=== PATIENT | male | born 1990 | race Caucasian/White ===

== ENCOUNTER 2016-03-07 12:08 | Emergency (ER) | payer OTHER ==
[2016-03-07 12:35] VITALS: TEMP 99.1; BMI 29.1
--- NOTE | 2016-03-07 12:38 | DIRPT ---
CLINICAL DATA: Cough, congestion, shortness of breath EXAM: CHEST 2 VIEW COMPARISON: 01/18/2016 FINDINGS: The heart size and mediastinal contours are within normal limits. Both lungs are clear. The visualized skeletal structures are unremarkable. IMPRESSION: No active cardiopulmonary disease. Electronically Signed By: Marcia Woods On: 03/07/2016 12:35
--- NOTE | 2016-03-07 12:50 | EDPRACDOC ---
- General Information Chief Complaint: Flu-Like Symptoms Stated Complaint: COUGH/CONGESTION/HEADACHE Time Seen by Provider: 03/07/16 12:44 Home Medications: Home Medications Azithromycin 250 mg PO DAILY #1 tablet 01/18/16 Benzonatate [Tessalon Perle] 100 mg PO TID #20 capsule 01/18/16 Azithromycin [Zithromax] 0 mg PO DAILY #6 tablet 03/07/16 Prednisone [Deltasone, Orasone] 40 mg PO DAILY 5 Days 03/07/16 Promethazine Dextromethorphan [Phenergan DM] 5 ml PO Q6 PRN #120 ml 03/07/16 Allergies/Adverse Reactions: Allergies Allergy/AdvReac Type Severity Reaction Status Date / Time No Known Allergies Allergy Verified 11/17/15 20:43 - History of Present Illness Onset: 1 WEEK HPI: PT COMPLAINS OF COUGH PROD OF GREEN PHLEGM, SINUS CONGESTION, SORE THROAT, WHEEZING, STATES SYMPTOMS X 1 MTH, WORSE OVER LAST WEEK, SEEMS TO BE WORSE AT NIGHT. NO FEVER OR CHILLS. Current Symptoms: Reports: Cough, Headache, Nasal Symptoms, Sore Throat, Myalgia Shortness of Breath: Mild Cough: Reports: Productive, Green Rhinorrhea: Reports: Green Ear Symptoms: Reports: None Fever Severity/Quality: Reports: no fever Oral Intake: Normal Urinary Output: Normal Relevant History of: None Associated Signs & Symptoms:: Reports: Cough, Headache, Nasal Symptoms, Sore Throat, Myalgia. Denies: Earache, Fever, Vomiting, Diarrhea ED Past Medical History - History Reviewed Yes Nurses notes reviewed and agree except as marked No Past Medical History: Yes Patient has no past medical history - Patient Medical History Psychological History: Denies: Depression - Social Medical History Smoking Status: Light tobacco smoker (less than 5/day) ETOH: None Substance Abuse: None EDM Review of Systems - Review of Systems Constitutional: negative: Chills, Fever Eyes: negative: Blurred Vision, Double Vision Ears: negative: Drainage Throat: Pain Nose: Congestion, Discharge Respiratory: Cough, Shortness of Breath, Wheezing Cardiovascular: negative: Chest Pain, Palpitations Gastrointestinal: negative: Diarrhea, Nausea, Pain, Vomiting Genitourinary: negative: Dysuria, Frequency Neurological: Headache. negative: Dizziness, Numbness, Weakness Musculoskeletal: No Symptoms Reported - Physical Exam Constitutional: Alert (Awake), No apparent distress Oriented to: Time, Person, Place Last recorded Vital Signs: Last Vital Signs Temp 99.1 F 03/07/16 12:34 Pulse 102 03/07/16 12:34 Resp 16 03/07/16 12:34 BP 131/78 03/07/16 12:34 Pulse Ox 93 03/07/16 12:34 Oxygen Pulse Oxygen Saturation 93 O2 Device Room Air Oxygen Flow Rate Fraction of Inspired Oxygen ( FIO2) - HEENT Head: Normal ( normocephalic) Eye Exam: Normal (PERRL, EOMI, Sclera white) Oropharynx: Red Tympanic Membrane: Dull ENT EAC: Normal TMJ: Normal Nose: No Symptoms Reported (septum midline) Neck: Normal (FROM, trachea at midline) - Respiratory/Cardiovascular Respiratory: Normal - CTA (BBS clear to auscultation without adventitious sounds ) Cardiovascular: Normal (RRR without murmur, gallop or rub) - Integumentary Skin: Normal, Warm, Dry Lymphatics: Normal (no adenopathy) - Neurologic Memory Impaired: Normal Motor Function: Normal (Normal tone, Pulses 2+ No cyanosis or edema, FROM) Cranial Nerve: Normal (CN II-X11 intact sensation, strength 5/5) Cerebellar: Normal Mood Description: Normal Perception: Normal - Differential Diagnosis Bronchitis, Pneumonia, Sinusitis, URI - Diagnostic Imaging CXR Image interpreted by: Radiologist CHEST 2 VIEW COMPARISON: 01/18/2016 FINDINGS: The heart size and mediastinal contours are within normal limits. Both lungs are clear. The visualized skeletal structures are unremarkable. IMPRESSION: No active cardiopulmonary disease. Decision Time to Discharge: 12:50 - Departure Disposition: Home Condition: Stable Final Diagnosis: Acute bronchitis, Tobacco abuse Instructions: Acute Bronchitis (ED) Education/Counseling Given To: Patient Education/Counseling Given Regarding: Diagnosis, Treatment, Prognosis, Follow Up Referrals: Lynsey Blackwood MD [Staff Physician] - One Week Prescriptions: Azithromycin [Zithromax] 0 mg PO DAILY #6 tablet Prednisone [Deltasone, Orasone] 40 mg PO DAILY 5 Days Promethazine Dextromethorphan [Phenergan DM] 5 ml PO Q6 PRN #120 ml PRN Reason: Cough Additional Instructions: Rest, drink plenty of fluids, use Tylenol every 4 hours and Motrin every 6 hours as needed for pain or fever, return to the ED for any worsening symptoms or concerns.
[2016-03-07] MEDS ORDERED: ALBUTEROL 6.7 GM MDI INH ONE (12:51)
[2016-03-07 13:05] VITALS: BP 138/80; PULSE 106
== END 2016-03-07 13:04 | disposition home or self-care (01) ==
LOC: EDMC 12:08
DX: J20.9 Acute bronchitis, unspecified (principal); F17.210 Nicotine dependence, cigarettes, uncomplicated
CPT/HCPCS: 71020; 94640; 99283; J3490

== ENCOUNTER 2016-03-08 13:52 | Emergency (ER) | payer OTHER ==
[2016-03-08 14:08] VITALS: TEMP 99; BMI 29.0
[2016-03-08 14:17] LABS: AUTOMATED BASOPHIL 0.4 % (0-2); AUTOMATED EOSINOPHIL 5.5 % (0-5); AUTOMATED LYMPH 17.5 % (17-44); AUTOMATED MONOCYTE 8.1 % (3-10); AUTOMATED NEUTROPHIL 68.5 % (45-76); MPV 9.9 fL (7.4-10.4)
[2016-03-08 14:27] LABS: BLOOD UREA NITROGEN 13 MG/DL (9-20); CALCIUM 9.4 MG/DL (8.4-10.2); CALCULATED OSMOLALITY 264 MOs/Kg (270-290); CHLORIDE 102 mEq/L (98-107); GLUCOSE 104 MG/DL (70-99); SODIUM LEVEL 137 mEq/L (137-146); TOTAL PROTEIN 7.9 G/DL (6.3-8.2)
--- NOTE | 2016-03-08 17:05 | EDPRACDOC ---
- General Information Chief Complaint: Dyspnea/Resp distress Stated Complaint: COUGHING UP BLOOD TURNING BLUE SEEN IN ED YESTERDA Time Seen by Provider: 03/08/16 17:00 Information Source: Patient Home Medications: Home Medications Prednisone [Deltasone, Orasone] 40 mg PO DAILY 5 Days 03/07/16 Promethazine Dextromethorphan [Phenergan DM] 5 ml PO Q6 PRN #120 ml 03/07/16 Albuterol Sulfate [Proair Hfa] 2 puff INH Q4-6H PRN 03/08/16 Benzonatate [Tessalon Perle] 100 mg PO TID #20 capsule 03/08/16 Allergies/Adverse Reactions: Allergies Allergy/AdvReac Type Severity Reaction Status Date / Time cat dander Allergy Wheezing Verified 03/08/16 14:05 - History of Present Illness HPI: SOB, WHEEZING. SEEN IN ED YESTERDAY. RESTARTED ON PREDNISONE AND ALBUTEROL MDI. INHALER. NOT HELPING. SOME BLOOD TINGED PRODUCTIVE SPUTUM. HAS TRIED LIVING WITHOUT CATS WITHOUT RELIEF. Shortness of Breath: Moderate ED Past Medical History - History Reviewed Yes Nurses notes reviewed and agree except as marked - Patient Medical History Respiratory History: Reports: Asthma Psychological History: Denies: Depression Systemic History: Denies: Cancer - Social Medical History Smoking Status: Heavy tobacco smoker (5 or more cigarettes/day or daily pipe/ cigar) EDM Review of Systems - Review of Systems ROS Negative Except as Marked: Yes All systems reviewed and were negative except as marked Constitutional: Fever (OFF AND ON) Eyes: No Symptoms Reported Respiratory: Shortness of Breath, Wheezing Cardiovascular: No Symptoms Reported Gastrointestinal: No Symptoms Reported Genitourinary: No Symptoms Reported Neurological: No Symptoms Reported Musculoskeletal: No Symptoms Reported Integumentary: No Symptoms Reported - Physical Exam Constitutional: Alert (Awake), No apparent distress Oriented to: Time, Person, Place Last recorded Vital Signs: Last Vital Signs Temp 99.0 F 03/08/16 14:05 Pulse 107 03/08/16 16:54 Resp 20 03/08/16 16:54 BP 133/74 03/08/16 16:54 Pulse Ox 94 03/08/16 16:54 Oxygen Pulse Oxygen Saturation 94 O2 Device Room Air Oxygen Flow Rate Fraction of Inspired Oxygen ( FIO2) - HEENT Head: Normal ( normocephalic) Eye Exam: Normal (PERRL, EOMI, Sclera white) Oropharynx: Normal (Pharynx:Moist without exudate,Gums-no swelling) Nose: No Symptoms Reported (septum midline) Neck: Normal (FROM, trachea at midline) - Respiratory/Cardiovascular Respiratory: Wheezes Cardiovascular: Normal (RRR without murmur, gallop or rub) - GI Auscultation: Normal (NABS) Palpation: Normal (Soft,No rebound or guarding, non distended) Tenderness: Non tender Blackman's Sign: Negative - Musculoskeletal Back: Normal (Non-Tender) Extremities: Normal (Normal tone, Pulses 2+ No cyanosis or edema, FROM) - Integumentary Skin: Normal, Warm, Dry Lymphatics: Normal (no adenopathy) - Neurologic Memory Impaired: Normal Motor Function: Normal (Normal tone, Pulses 2+ No cyanosis or edema, FROM) Cranial Nerve: Normal (CN II-X11 intact sensation, strength 5/5) Cerebellar: Normal Mood Description: Normal Perception: Normal ED SOB MDM - Results Result Diagrams: 03/08/16 14:07 03/08/16 14:07 Results: WBC 11.6 xk/uL (3.8-10.8) H 03/08/16 14:07 RBC 5.42 xM/uL (4.70-6.10) 03/08/16 14:07 Hgb 16.8 g/dL (14.0-18.0) 03/08/16 14:07 Hct 48.9 % (42-52) 03/08/16 14:07 MCV 90 fL (80-94) 03/08/16 14:07 MCH 31.0 pg (27-32) 03/08/16 14:07 MCHC 34.3 g/dl (33-36) 03/08/16 14:07 RDW 12.7 % (11.5-14.5) 03/08/16 14:07 Plt Count 184 xk/uL (130-400) 03/08/16 14:07 MPV 9.9 fL (7.4-10.4) 03/08/16 14:07 Neut % (Auto) 68.5 % (45-76) 03/08/16 14:07 Lymph % (Auto) 17.5 % (17-44) 03/08/16 14:07 [place] % (Auto) 8.1 % (3-10) 03/08/16 14:07 Eos % (Auto) 5.5 % (0-5) H 03/08/16 14:07 Baso % (Auto) 0.4 % (0-2) 03/08/16 14:07 Absolute Neuts (auto) 7.89 xk/uL (1.7-8.2) 03/08/16 14:07 Absolute Lymphs (auto) 1.97 xk/uL (0.65-4.75) 03/08/16 14:07 Sodium 137 mEq/L (137-146) 03/08/16 14:07 Potassium 4.0 mEq/L (3.5-5.1) 03/08/16 14:07 Chloride 102 mEq/L (98-107) 03/08/16 14:07 Carbon Dioxide 23 mMOL/L (22-33) 03/08/16 14:07 Anion Gap 16 mEq/L (8-16) 03/08/16 14:07 BUN 13 MG/DL (9-20) 03/08/16 14:07 Creatinine 0.80 MG/DL (0.66-1.25) 03/08/16 14:07 Estimated GFR (MDRD) > 60 mL/min (>=60) 03/08/16 14:07 Glucose 104 MG/DL (70-99) H 03/08/16 14:07 Calculated Osmolality 264 MOs/Kg (270-290) L 03/08/16 14:07 Calcium 9.4 MG/DL (8.4-10.2) 03/08/16 14:07 Total Bilirubin 0.9 MG/DL (0.2-1.3) 03/08/16 14:07 AST 36 IU/L (17-59) 03/08/16 14:07 ALT 52 IU/L (21-72) 03/08/16 14:07 Alkaline Phosphatase 87 IU/L (38-126) 03/08/16 14:07 Total Protein 7.9 G/DL (6.3-8.2) 03/08/16 14:07 Albumin 4.5 G/DL (3.5-5.0) 03/08/16 14:07 Lab Results 03/08/16 03/08/16 14:07 14:07 WBC 11.6 H RBC 5.42 Hgb 16.8 Hct 48.9 MCV 90 MCH 31.0 MCHC 34.3 RDW 12.7 Plt Count 184 MPV 9.9 Neut % (Auto) 68.5 Lymph % (Auto) 17.5 [place] % (Auto) 8.1 Eos % (Auto) 5.5 H Baso % (Auto) 0.4 Absolute Neuts (auto) 7.89 Absolute Lymphs (auto) 1.97 Sodium 137 Potassium 4.0 Chloride 102 Carbon Dioxide 23 Anion Gap 16 BUN 13 Creatinine 0.80 Estimated GFR (MDRD) > 60 Glucose 104 H Calculated Osmolality 264 L Calcium 9.4 Total Bilirubin 0.9 AST 36 ALT 52 Alkaline Phosphatase 87 Total Protein 7.9 Albumin 4.5 Decision Time to Discharge: 18:00 - Departure Yes I personally saw and evaluated the patient. Disposition: Home Condition: Stable Final Diagnosis: Bronchitis, acute, with bronchospasm Instructions: Acute Bronchitis (ED) Education/Counseling Given To: Patient Education/Counseling Given Regarding: Diagnosis Referrals: None,No Provider [Primary Care Provider] - One Week Prescriptions: Benzonatate [Tessalon Perle] 100 mg PO TID #20 capsule
[2016-03-08] MEDS ORDERED: Albuterol/Ipratropium Neb 3 ML NEB NEB ONE (17:08)
[2016-03-08] MEDS ORDERED: TUSSIONEX 5 ML ORAL SYRINGE PO ONE (17:47)
[2016-03-08 17:56] VITALS: BP 148/77; PULSE 102
[2016-03-09] MEDS ORDERED: EPINEPHrine 1 MG/10 ML (1:10,000) SYR ONE (20:12)
== END 2016-03-08 18:30 | disposition home or self-care (01) ==
LOC: ED 13:52
DX: J20.9 Acute bronchitis, unspecified (principal); F17.200 Nicotine dependence, unspecified, uncomplicated
CPT/HCPCS: 36415; 80053; 85025; 94640; 99284; J3490; J7620; J0171

== ENCOUNTER 2016-03-27 14:40 | Emergency (ER) | payer OTHER ==
[2016-03-27 15:20] VITALS: BP 154/78; PULSE 96; TEMP 99.2
[2016-03-27 15:21] VITALS: BMI 29.1
--- NOTE | 2016-03-27 15:25 | DIRPT ---
CLINICAL DATA: Back strain EXAM: LUMBAR SPINE - COMPLETE 4+ VIEW COMPARISON: None. FINDINGS: There is no evidence of lumbar spine fracture. Upper sacrum appears intact. Alignment is normal. Intervertebral disc spaces are maintained. Paravertebral soft tissues are unremarkable. IMPRESSION: Negative. Electronically Signed By: Osiel Mallory M.D. On: 03/27/2016 15:23
--- NOTE | 2016-03-27 15:27 | DIRPT ---
CLINICAL DATA: Back strain, lifting injury EXAM: THORACIC SPINE 2 VIEWS COMPARISON: None. FINDINGS: There is no evidence of thoracic spine fracture. Minimal scoliotic deformity of the thoracic spine may be positional in nature. No other significant bone abnormalities are identified. Paravertebral soft tissues are unremarkable. IMPRESSION: Negative. Electronically Signed By: Osiel Mallory M.D. On: 03/27/2016 15:24
--- NOTE | 2016-03-27 15:33 | EDPRACDOC ---
- General Information Chief Complaint: Back Pain Stated Complaint: UPPER/LOWER BACK PAIN Time Seen by Provider: 03/27/16 15:19 Information Source: Patient Mode Of Arrival: Car Home Medications: Home Medications Diazepam [Valium] 5 mg PO TID #15 tablet 03/27/16 Oxycodone Immediate Release [Oxycodone Immediate Release (OxyIR)] 5 mg PO Q6H PRN #20 tab 03/27/16 Prednisone [Deltasone, Orasone] 20 mg PO BID #12 tab 03/27/16 Allergies/Adverse Reactions: Allergies Allergy/AdvReac Type Severity Reaction Status Date / Time cat dander Allergy Wheezing Verified 03/27/16 15:33 - History of Present Illness Onset: YESTERDAY HPI: PT PRESENTS WITH CERVICAL AND LUMBAR BACK PAIN THAT BEGAN WHEN HE WAS HELPING HIS PARENTS MOVE. STATES HE WAS MOVING A LARGE PIECE OF FURNITURE AND TRIPPED OVER A WATER HOSE AND LOST HIS FOOTING. AT THAT TIME HE TWISTED HIS BACK. DENIES ANY RADIATION OF THE PAIN DOWN HIS ARMS OR LEGS, DENIES ANY LOSE OF BOWEL OR BLADDER. Pain Location: Reports: Upper, Lower, Thoracic, Lumbar Pain Radiates To: Reports: None Pain Caused By: Reports: Lifting Circumstances: Reports: Other Relevant History: Denies: Abdominal aneurysm, Arthiritis, Cancer, Chronic back pain, Gallbladder disease, Pancreatitis, Pyelonephritis, Urolithiasis, UTI, None , IA, O Pain Severity: Reports: Moderate Pain Quality: Reports: Sharp, Stabbing Worsened By: Reports: Breathing, Movement, Twisting, Walking Associated Signs and Symptoms: Reports: None ED Past Medical History - History Reviewed Yes Nurses notes reviewed and agree except as marked - Patient Medical History Respiratory History: Reports: Asthma Psychological History: Denies: Depression Systemic History: Denies: Cancer - Social Medical History Smoking Status: Heavy tobacco smoker (5 or more cigarettes/day or daily pipe/ cigar) EDM Review of Systems - Review of Systems ROS Negative Except as Marked: Yes All systems reviewed and were negative except as marked - Physical Exam Constitutional: Alert Oriented to: Time, Person, Place Last recorded Vital Signs: Last Vital Signs Temp 99.2 F 03/27/16 15:19 Pulse 96 03/27/16 15:19 Resp 20 03/27/16 15:19 BP 154/78 03/27/16 15:19 Pulse Ox 95 03/27/16 15:19 Oxygen Pulse Oxygen Saturation 95 O2 Device Oxygen Flow Rate Fraction of Inspired Oxygen ( FIO2) - HEENT Head: Normal ( normocephalic) Eye Exam: Normal (PERRL, EOMI, Sclera white) Oropharynx: Normal (Pharynx:Moist without exudate,Gums-no swelling) Nose: No Symptoms Reported (septum midline) Neck: Normal (FROM, trachea at midline) - Respiratory/Cardiovascular Respiratory: Normal - CTA (BBS clear to auscultation without adventitious sounds ) Cardiovascular: Normal (RRR without murmur, gallop or rub) - GI Auscultation: Normal (NABS) Palpation: Normal (Soft,No rebound or guarding, non distended) Tenderness: Non tender Blackman's Sign: Negative Rectal Exam: Deferred - Musculoskeletal Back: CVA Tenderness, No Palpable Step-off Extremities: Normal (Normal tone, Pulses 2+ No cyanosis or edema, FROM) - Integumentary Skin: Normal, Warm, Dry Lymphatics: Normal (no adenopathy) - Neurologic Memory Impaired: Normal Motor Function: Normal (Normal tone, Pulses 2+ No cyanosis or edema, FROM) Cranial Nerve: Normal (CN II-X11 intact sensation, strength 5/5) Cerebellar: Normal Mood Description: Normal Perception: Normal ED Back Exam - Neurologic Motor Deficit: None Reflexes: Normal - Musculoskeletal Cervical: Tender, CVA Tenderness Thoracic: Normal Lumbar: Tender, CVA Tenderness Midline: Normal Paraspinous: Normal Straight Leg Raise: Negative Pelvis: Normal - Differential Diagnosis Musculoskeletal pain Decision Time to Discharge: 15:35 - Departure Disposition: Home Condition: Stable Final Diagnosis: Lumbar sprain Cervical sprain Qualifiers: Encounter type: initial encounter Qualified Code(s): S13.9XXA - Sprain of joints and ligaments of unspecified parts of neck, initial encounter Instructions: Thoracic (Lumbar) Strain, Cervical Strain (ED) Education/Counseling Given To: Patient Education/Counseling Given Regarding: Diagnosis, Treatment, Prognosis, Follow Up Referrals: None,No Provider [Primary Care Provider] - One Week Aric Head MD [Staff Physician] - One Week Prescriptions: New Diazepam [Valium] 5 mg PO TID #15 tablet Oxycodone Immediate Release [Oxycodone Immediate Release (OxyIR)] 5 mg PO Q6H PRN #20 tab PRN Reason: Pain Prednisone [Deltasone, Orasone] 20 mg PO BID #12 tab Forms: Excuse Note Additional Instructions: ICE OR HEAT TO THE AFFECTED AREA. FOLLOW UP WITH PCP NEXT WEEK. RETURN TO THE ED FOR WORSENING SYMPTOMS OR CONCERNS.
[2016-03-27] MEDS ORDERED: OXYCODONE HCL 5 MG TABLET PO ONE (15:34)
[2016-03-27] MEDS ORDERED: DIAZEPAM 5 MG TAB PO ONE (15:34)
[2016-03-27] MEDS ORDERED: PREDNISONE 20 MG TAB PO ONE (15:34)
== END 2016-03-27 16:22 | disposition home or self-care (01) ==
LOC: EDMC 14:40
DX: S33.5XXA Sprain of ligaments of lumbar spine, initial encounter (principal); S13.4XXA Sprain of ligaments of cervical spine, initial encounter; W18.41XA Slipping, tripping and stumbling without falling due to stepping on object, initial encounter; Y93.89 Activity, other specified
CPT/HCPCS: 72070; 72110; 99282; J3490